=== PATIENT | female | born 1985 | race Caucasian/White ===

== ENCOUNTER → 2016-08-24 | Outpatient (CLI) | payer SELFPAY ==
--- NOTE | 2016-08-24 18:11 | DI ---
XR ELBOW COMPLETE MIN 3VW,08/24/2016 2:36 PM: Clinical History: Left elbow pain. Previous Exam: None at this facility. Findings: AP, lateral and oblique views of the left elbow are obtained, and demonstrate anatomic alignment with out fractures. There is no evidence of elbow joint effusion. Impression: Normal left elbow.
== END ==
LOC: MOB RAD 14:38
PROVIDERS: ATTEND Physician Assistant
DX: M25.522 Pain in left elbow (principal); W18.09XA Striking against other object with subsequent fall, initial encounter
CPT/HCPCS: 73080

== ENCOUNTER 2016-10-31 23:20 | Emergency (ER) | payer SELFPAY ==
[2016-10-31 23:34] LABS: BACTERIA,URINE MANY; SQUAMOUS EPITHELIAL CELL,UR FEW; WBC,URINE 60-80
[2016-10-31] MEDS ORDERED: SULFAMETHOXAZOLE/TRIMETHOPRIM 800/160 MG TABLET PO SCH (23:45)
[2016-10-31] MEDS ORDERED: SULFAMETHOXAZOLE/TRIMETHOPRIM 800/160 MG TABLET PO ONE (23:47)
[2016-10-31 23:49] VITALS: RESP 18; TEMP 97.6
--- NOTE | 2016-11-01 01:10 | PDOC ---
Female Problem HPI - General Chief Complaint: Genitourinary Complaint Stated Complaint: burning with urination Date Seen by Provider: 10/31/16 Time Seen by Provider: 23:30 Source: POSITIVE: Patient Exam Limitations: POSITIVE: No limitations Nurse's Notes Reviewed & Considered: Yes - History of Present Illness Initial Comments: The patient is a 31-year-old female. She presents ambulatory to the emergency room. She states that for approximately the past 24 hours she has had dysuria and urinary urgency. She took to ease oh tablets this evening. No fevers or chills. No flank or abdominal pain. She states she's had a bilateral tubal ligation. Previous history of UTIs. Body Location Affected: REPORTS: Other (Dysuria) Timing: REPORTS: Gradual, Getting Worse Duration: <24 hours Severity: Moderate Quality: REPORTS: Burning, Other (Dysuria) Context: DENIES: Frequent Bathing, Poor Hygiene, Frequent [place], Known STD Exposure, Unknown STD Exposure, Possible STD Exposure, Multiple Partners, Known , Recent Vaginal Delivery, Recent Delivery, Recent Miscarriage, Recent Trauma, Recent Surgery, Other Location of Pain: REPORTS: Burning (Dysuria). DENIES: Right, Left, Breast Pain , Abdominal Pain, Pelvic Pain, Pelvic Cramping, Pelvic Pressure, Sharp, Vulvar Pain, Vaginal Pain, Low Back Pain, Flank Pain, Shoulder Pain : REPORTS: Other (Tubal ligation) Urinary Symptoms: REPORTS: Frequent Urination, Burning w/ Urination, Urinary Urgency Discharge: DENIES: Vaginal Discharge, Vag Fluid Leak- , Breast Discharge, Other Similar Symptoms Previously: Yes Recent Care Received: REPORTS: Denies Any Prior Injuries Related to Current Complaint?: No - Patient Home Medications Home Medications: Home Medications Escitalopram Oxalate [Lexapro] 1 tab PO DAILY #30 tab 07/14/16 Phentermine HCl 37.5 mg PO DAILY #30 tab 10/22/16 Sulfamethoxazole/Trimethoprim [Bactrim Ds Tablet] 1 tab PO Q12H #18 tab - Patient Allergies Allergies/Adverse Reactions: Allergies Allergy/AdvReac Type Severity Reaction Status Date / Time No Known Allergies Allergy Verified 10/31/16 23:26 Past Medical History - heen HEENT History: Denies History Cardiovascular History: Denies History Respiratory History: Denies History Gastrointestinal History: Denies History Genitourinary History: Recurrent UTI Endocrine History: Denies History Musculoskeletal History: Denies History Neurological History: Denies History Blood Disorders: Denies History Psychiatric History: Depression, Anxiety Disorders History of Sexually Transmitted Diseases: No Cancer History: Denies History In Past Year Been Physically Harmed or Verbally Threatened: No History of MDRO: No History of Other Communicable Diseases: No Tobacco Use: Current Every Day Smoker Alcohol Use: None Substance Use Type: None Previous Surgical History: Yes Type / Date of Surgery: TONSILS AND ADNOIDS, C-SECTx3 Anesthesia Reactions: No Malignant Hyperthermia: No Significant Family History: No pertinent family hx Past Medical History Reviewed: Reviewed - No Changes ROS - Limitations ROS Limitations: No Limitations Constitution: REPORTS: Denies Symptoms Cardiovascular: REPORTS: Denies Cardiac Symptoms Respiratory: REPORTS: Denies Resp Symptoms Neurological: REPORTS: Denies Neuro Symptoms Gastrointestinal: REPORTS: Denies GI Symptoms Endocrine: REPORTS: Denies Symptoms Musculoskeletal: REPORTS: Denies MS Symptoms Genitourinary: REPORTS: Dysuria Eyes: REPORTS: Denies Symptoms ENT: REPORTS: Denies Symptoms Skin: REPORTS: Denies Skin Symptoms Lympathic: REPORTS: Denies Lympathic Symptoms Immunologic: POSITIVE: Denies Symptoms Psychiatric: POSITIVE: Denies Psych Symptoms Female Genitourinary Exam - General Appearance General Appearance: POSITIVE: Alert, Cooperative, No Acute Distress, No Evidence of Trauma - HEENT HEENT: POSITIVE: Head Inspection Nml, Eyes Inspection Nml, Ears Inspection Nml, Nose Inspection Nml, Oral/Dental Inspect. Nml, Pharynx Inspect. Nml, PERRL, EOMI - Neck Neck: POSITIVE: Normal Inspection, No Apparent Injury - Respiratory Respiratory: POSITIVE: No Respiratory Distress, Breath Sounds Normal, Chest Non- Tender - Cardiovascular Cardiovascular: POSITIVE: Regular Rate and Rhythm, Heart Sounds Normal, Equal Pulses, Strong Pulses Peripheral Pulses: Radial (R): 2+, Radial (L): 2+ - Abdomen Abdomen: POSITIVE: Soft, Normal Bowel Sounds, Non-Tender, No Distention, No Organomegaly - Back Back: POSITIVE: Normal Inspection. 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 Culture set - Patient's Progress Pain Medication Addressed: POSITIVE: Not Applicable School/Work Release Addressed: POSITIVE: Not Applicable Re-Examine Time: 00:15 Status: POSITIVE: Unchanged - Consult Counseled: POSITIVE: Patient, RE: Lab Results, RE: DX, RE: Need for F/U Patient Care Time - Estimated PCT Patient Care Time (In Minutes): 23 Vital Signs - Recent Vital Signs Vital Signs: Vital Signs (Last 8 hours) Temp Pulse Resp BP Pulse Ox 10/31/16 23:20 97.6 F 87 18 137/91 100 - VS Reviewed Vital Signs Reviewed: Yes Discharge Clinical Impression: Urinary tract infection Discharge Disposition: Discharged to Home Condition: Good Prescriptions / Orders: Sulfamethoxazole/Trimethoprim [Bactrim Ds Tablet] 1 tab PO Q12H #18 tab Patient Instructions Given at Discharge: Urinary Tract Infection in Women (ED) Additional Instructions: Bactrim DS, one every 12 hours for 10 days. Increase fluids. Azo every 8 hours as necessary for urinary discomfort. Follow-up with your primary care provider. Return here anytime if condition worsens. Follow Up With: WENDY MERAZ [Primary Care Provider] - (Instructions as above. Return here anytime if condition worsens. Follow-up with your primary care provider.)
== END 2016-10-31 23:57 | disposition home or self-care (01) ==
LOC: ER 23:20
DX: N39.0 Urinary tract infection, site not specified (principal); Z87.440 Personal history of urinary (tract) infections
CPT/HCPCS: 81015; 87088; 99282

== ENCOUNTER 2016-11-15 21:35 | Emergency (ER) | payer OTHER ==
[2016-11-15] MEDS ORDERED: Lidocaine 1% 10 MG/ML - 20 ML VIAL SUBCUT ONE (21:46)
[2016-11-15 22:12] VITALS: RESP 20; TEMP 97.2
[2016-11-15] MEDS ORDERED: HYDROcodone-APAP 5 MG -325 MG TABLET PO SCH (23:15)
[2016-11-15] MEDS ORDERED: CEPHALEXIN 500 MG CAPSULE PO SCH (23:15)
--- NOTE | 2016-11-16 00:47 | PDOC ---
Hand / Wrist Injury HPI - General Chief Complaint: Laceration / Wound Stated Complaint: laceration to the 3rd digit of right hand Date Seen by Provider: 11/15/16 Time Seen by Provider: 22:15 Source: POSITIVE: Patient Exam Limitations: POSITIVE: No limitations Nurse's Notes Reviewed & Considered: Yes - History of Present Illness Initial Comments: The patient is a 31-year-old female who presents to the emergency department with a laceration to her right middle finger. She states that she was at work wiping out a cabinet when a glass shard went through the pad of her right middle finger into the ring finger. She states that she had to pull the piece of glass out of her finger. She denies any other associated injuries or complaints. She had a tetanus shot approximately 4 months ago after cutting her hand on a can of chili. Have you received a tetanus shot in the past 10 years?: Yes - Patient Home Medications Home Medications: Home Medications Escitalopram Oxalate [Lexapro] 1 tab PO DAILY #30 tab 07/14/16 Phentermine HCl 37.5 mg PO DAILY #30 tab 10/22/16 Cephalexin [Keflex] 500 mg PO Q8H #15 cap 11/15/16 - Patient Allergies Allergies/Adverse Reactions: Allergies Allergy/AdvReac Type Severity Reaction Status Date / Time No Known Allergies Allergy Verified 10/31/16 23:26 Past Medical History - heen HEENT History: Denies History Cardiovascular History: Denies History Respiratory History: Denies History Gastrointestinal History: Denies History Genitourinary History: Recurrent UTI Endocrine History: Denies History Musculoskeletal History: Denies History Neurological History: Denies History Blood Disorders: Denies History Psychiatric History: Depression, Anxiety Disorders History of Sexually Transmitted Diseases: No Obstetrical History: Delivery Additional Obstetrical History: x3 C-sections Cancer History: Denies History In Past Year Been Physically Harmed or Verbally Threatened: No History of MDRO: No History of Other Communicable Diseases: No Tobacco Use: Current Every Day Smoker Alcohol Use: None Substance Use Type: None Previous Surgical History: Yes Type / Date of Surgery: TONSILS AND ADNOIDS, C-SECTx3 Anesthesia Reactions: No Malignant Hyperthermia: No Significant Family History: No pertinent family hx Past Medical History Reviewed: Reviewed - No Changes ROS - Limitations ROS Limitations: No Limitations (Review of systems otherwise noncontributory) Hand / Wrist Injury Exam - General Appearance General Appearance: POSITIVE: Alert, Cooperative, No Acute Distress - Extremities Upper Extremity: POSITIVE: Other (examination of the right hand reveals a puncture laceration from a glass shard that extends through the distal aspect of her right middle finger on the pad of the finger, there is some minimal bleeding from both wounds, she also has a small puncture to the pad of her right fourth fingertip) Neurovascular / Tendon: POSITIVE: Sensation Normal, Motor Normal, No Vascular Compromise Procedure - Laceration/Wound Repair Site of Lac/Wound:: Right middle finger Wound Length (cm): 1.5 Wound's Depth, Shape: Into subcutaneous tissue, Linear Distal CMS: Yes Skin Prep: Betadine Prep Local Anesthesia Used - Indicate Amt Used in Comment: Lidocaine 1%: Yes ( digital block) Wound Explored: Clean Wound Repaired With: Sutures single layer Suture Size/Type: 4:0, Ethilon Number of Sutures: 2 Procedure Note:: She did have a puncture laceration which went through the pad of her right middle finger, digital block was placed in the wound was cleansed, one stitch was placed in the entrance and one stitch in the exit wound on the finger to loosely approximate both wounds, Xeroform tube gauze dressing was applied. - Additional Procedures Additional Procedures: Other Procedure Note:: In addition to the wound on the middle finger, on x-ray it appeared that she had a shard of glass located in the distal aspect of the ring finger. Digital block was applied and the wound was explored, there was a piece of glass however this could not be removed initially. An 11 blade scalpel was used to enlarge the wound slightly and then forcep was used to remove the glass shard. Repeat x-ray revealed no evidence of continued foreign body. Dressing was applied and one stitch was placed in the wound to reapproximate. Hand / Wrist Injury Progress - Results Reviewed by me Xrays/CTs/US Reviewed by me: Yes Radiology Findings: X-ray of the right hand reveals no evidence of foreign body in the middle finger, there is however a foreign body in the distal tip of the ring finger - Patient's Progress MDM / ED Course: Wound care instructions were discussed. It appears at least by x-ray that the glass shard was removed from the distal aspect of the ring finger. She was placed on Keflex 500 mg 3 times a day for 5 days. In addition she is advised to take ibuprofen as needed for pain and was given number for [place] as needed for pain. She will return to the emergency room if increased pain or swelling, fever, other sign of infection. She'll have sutures removed from all wounds in approximately 10 days. - Consult Counseled: POSITIVE: Patient, Family, RE: Radiology Results, RE: DX, RE: Need for F/U Patient Care Time - Estimated PCT Patient Care Time (In Minutes): 40 Vital Signs - Recent Vital Signs Vital Signs: Vital Signs (Last 8 hours) Temp Pulse Resp BP Pulse Ox 11/15/16 22:09 97.2 F 93 20 137/98 93 - VS Reviewed Vital Signs Reviewed: Yes Discharge Clinical Impression: Laceration of finger, Foreign body (FB) in soft tissue Discharge Disposition: Discharged to Home Condition: Good Prescriptions / Orders: Cephalexin [Keflex] 500 mg PO Q8H #15 cap Patient Instructions Given at Discharge: Laceration (ED), Soft Tissue Foreign Body (ED) Additional Instructions: There was a small shard of glass located at the tip of your right ring finger which was removed. The other lacerations/puncture to the middle finger was repaired with a stitch. Keep all the wounds dry for the first 24 hours. You can take ibuprofen 600 mg every 6 hours as needed for pain. In addition you were given [place] 5/325 which he can take one every 6 hours as needed for severe pain. In addition you have been started on Keflex 500 mg 3 times a day for 5 days which is an antibiotic. Return to the emergency room if increased pain or swelling, drainage from the wound, fever or other sign of infection. Sutures should be removed in 10 days. Follow Up With: WENDY MERAZ [Primary Care Provider] -
--- NOTE | 2016-11-16 13:00 | DI ---
XR HAND MIN 3VW,11/15/2016 9:46 PM: Clinical History: Puncture wound from glass. Previous Exam: None at this facility. Findings: Multiple views of the right hand are obtained, and demonstrate a calcified density near the distal po rtion of the right fourth phalanx. Surrounding soft tissues are unremarkable. Impression: Avulsion fracture right fourth digit distally within the soft tissues.
--- NOTE | 2016-11-16 13:00 | DI ---
XR FINGERS MIN 2VW,11/15/2016 10:47 PM: Clinical History: Post reduction Previous Exam: One hour prior. Findings: Multiple views of the right fourth digit are obtained, and demonstrate interval removal of the hyperd ense area seen on the prior exam. Impression: No foreign body.
== END 2016-11-15 23:20 | disposition home or self-care (01) ==
LOC: ER 21:35
DX: S61.222A Laceration with foreign body of right middle finger without damage to nail, initial encounter (principal); W25.XXXA Contact with sharp glass, initial encounter; W45.8XXA Other foreign body or object entering through skin, initial encounter; Y92.511 Restaurant or cafe as the place of occurrence of the external cause; Y99.0 Civilian activity done for income or pay
CPT/HCPCS: 10120; 12001; 73130; 73140; 99283; J2001

== ENCOUNTER 2016-11-16 14:55 | Emergency (ER) | payer OTHER ==
[2016-11-16 15:45] VITALS: RESP 12; TEMP 98.2
--- NOTE | 2016-11-16 22:11 | PDOC ---
Hand / Wrist Injury HPI - General Chief Complaint: Upper Extremity Problem/Injury Stated Complaint: pain right middle finger Date Seen by Provider: 11/16/16 Time Seen by Provider: 17:45 Source: POSITIVE: Patient Exam Limitations: POSITIVE: No limitations Nurse's Notes Reviewed & Considered: Yes - History of Present Illness Initial Comments: The patient is a 31-year-old female. Last night she broke a drinking glass and sustained lacerations to the tips of her right ring and middle fingers. She was seen in the emergency room last night and a shard of glass was removed from the tip of her ring finger. Patient states that she was started on Keflex at that time and was given 4 Lortab tablets for pain. She presents to the emergency room today requesting a work excuse and stating that she is still having discomfort at the site of her wounds. No sensory or motor symptoms. Have you received a tetanus shot in the past 10 years?: Yes Body Location Affected: REPORTS: Upper Extremity (R) Timing: REPORTS: Abrupt Duration: <24 hours Severity: Mild Location at Time of Onset: REPORTS: Work Context: REPORTS: Laceration Location of Injury: REPORTS: Right, 3rd Finger, 4th Finger Quality: REPORTS: "Pain" Modifying Factors: REPORTS: Other (Exacerbated by direct palpation) Associated Symptoms: DENIES: Arm (R), Arm (L), Tingling Distally, Numbness Distally, Loss of Feeling, Loss of Power, Other Any Prior Injuries Related to Current Complaint?: Yes (as above) - Patient Home Medications Home Medications: Home Medications Escitalopram Oxalate [Lexapro] 1 tab PO DAILY #30 tab 07/14/16 Phentermine HCl 37.5 mg PO DAILY #30 tab 10/22/16 Cephalexin [Keflex] 500 mg PO Q8H #15 cap 11/15/16 HYDROcodone/APAP 10/325 Tab [[place] 10/325 Tab] 1 tab PO Q6H PRN #12 tab - Patient Allergies Allergies/Adverse Reactions: Allergies Allergy/AdvReac Type Severity Reaction Status Date / Time No Known Allergies Allergy Verified 11/16/16 15:06 Past Medical History - nona HEENT History: Denies History Cardiovascular History: Denies History Respiratory History: Denies History Gastrointestinal History: Denies History Genitourinary History: Recurrent UTI Endocrine History: Denies History Musculoskeletal History: Denies History Prosthesis or Implant: No Neurological History: Denies History Blood Disorders: Denies History Psychiatric History: Depression, Anxiety Disorders History of Sexually Transmitted Diseases: No LMP: 10/22/16 Obstetrical History: Delivery Additional Obstetrical History: times 3 Cancer History: Denies History In Past Year Been Physically Harmed or Verbally Threatened: No History of MDRO: No History of Other Communicable Diseases: No Tobacco Use: Current Every Day Smoker Alcohol Use: None Substance Use Type: None Previous Surgical History: Yes Type / Date of Surgery: TONSILS AND ADNOIDS, C-SECTx3 Anesthesia Reactions: No Malignant Hyperthermia: No Significant Family History: No pertinent family hx Past Medical History Reviewed: Reviewed - No Changes ROS - Limitations ROS Limitations: No Limitations Constitution: REPORTS: Denies Symptoms Cardiovascular: REPORTS: Denies Cardiac Symptoms Respiratory: REPORTS: Denies Resp Symptoms Neurological: REPORTS: Denies Neuro Symptoms Gastrointestinal: REPORTS: Denies GI Symptoms Endocrine: REPORTS: Denies Symptoms Musculoskeletal: REPORTS: Recent Injury (Some pain to the tips of her right third and fourth fingers as above; see diagram) Genitourinary: REPORTS: Denies Symptoms Eyes: REPORTS: Denies Symptoms ENT: REPORTS: Denies Symptoms Skin: REPORTS: Other (Lacerations as above) Lympathic: REPORTS: Denies Lympathic Symptoms Immunologic: POSITIVE: Denies Symptoms Psychiatric: POSITIVE: Denies Psych Symptoms Hand / Wrist Injury Exam - General Appearance General Appearance: POSITIVE: Alert, Cooperative, No Acute Distress. NEGATIVE: No Evidence of Trauma - Extremities Upper Extremity: POSITIVE: No Evidence of FB, Normal ROM, Soft Tissue Tenderness , Uninjured Above Wrist, See Diagram. NEGATIVE: Bony Tenderness, Swelling, Ecchymosis, Deformity, Complete Nail Injury, Partial Avulsion, Limited ROM, Limited ROM d/t Pain, Ltd. ROM d/t Funct. Def., Snuff Box Position Tender, Axial Thumb Load Pain Neurovascular / Tendon: POSITIVE: Sensation Normal, Motor Normal, No Vascular Compromise, Tendon Function Normal Skin: POSITIVE: Warm, Dry, See Diagram - Respiratory / CVS Peripheral Pulses: Radial (R): 2+, Radial (L): 2+ Images - Hands Hand: 1 - Sutured laceration 2 - Sutured laceration Hand / Wrist Injury Progress - Patient's Progress Pain Medication Addressed: POSITIVE: Yes (hydrocodone/APAP, 10/325 one every 6 hours as necessary; 12 given) School/Work Release Addressed: POSITIVE: Yes Re-Examine Time: 18:00 Status: POSITIVE: Unchanged - Consult Counseled: POSITIVE: Patient Patient Care Time - Estimated PCT Patient Care Time (In Minutes): 15 Vital Signs - Recent Vital Signs Vital Signs: Vital Signs (Last 8 hours) Temp Pulse Resp BP Pulse Ox 11/16/16 15:04 98.2 F 83 12 124/70 95 - VS Reviewed Vital Signs Reviewed: Yes Discharge Clinical Impression: Laceration of finger Discharge Disposition: Discharged to Home Condition: Stable Prescriptions / Orders: HYDROcodone/APAP 10/325 Tab [[place] 10/325 Tab] 1 tab PO Q6H PRN #12 tab PRN Reason: Pain Patient Instructions Given at Discharge: Laceration (ED) Additional Instructions: Keep sutures dry. Work excuse for 72 hours. Hydrocodone/APAP, one every 6 hours as necessary for pain. Return for suture removal in about 9 days. Return anytime at first sign of infection, or if condition worsens in any way. Follow Up With: WENDY MERAZ [Primary Care Provider] - (Return for suture removal in about 9 days. Instructions as above. Return as necessary.)
== END 2016-11-16 18:07 | disposition home or self-care (01) ==
LOC: ER 14:55
DX: S61.212A Laceration without foreign body of right middle finger without damage to nail, initial encounter (principal); S61.214A Laceration without foreign body of right ring finger without damage to nail, initial encounter; W25.XXXA Contact with sharp glass, initial encounter; Y99.0 Civilian activity done for income or pay
CPT/HCPCS: 99282

== ENCOUNTER 2016-12-21 22:39 | Emergency (ER) | payer SELFPAY ==
[2016-12-21 22:55] VITALS: TEMP 98.6
[2016-12-21] MEDS ORDERED: NORMAL SALINE 10 ML SYRINGE FLUSH IVP PRN (22:59)
[2016-12-21] MEDS ORDERED: Sodium Chloride 0.9% 1,000 ML PRIMARY IV ONE (22:59)
[2016-12-21] MEDS ORDERED: KETOROLAC 30 MG/1 ML VIAL IVP ONE (22:59)
[2016-12-21] MEDS ORDERED: TAMSULOSIN 0.4 MG CAPSULE PO ONE (23:01)
[2016-12-21 23:09] LABS: BASOPHILS # (AUTO) 0.11 10*3/UL; EOSINOPHILS # (AUTO) 0.16 10*3/UL; EOSINOPHILS % (AUTO) 1.5 % (0-8); HEMATOCRIT 43.3 % (37.0-47.0); HEMOGLOBIN 14.8 g/dL (12.0-16.0); LYMPHOCYTES # (AUTO) 3.82 10*3/uL; MEAN CORPUSCULAR HEMOGLOBIN 32.2 PG (27-31); MEAN CORPUSCULAR HGB CONC 34.2 g/dL (33-37); MEAN CORPUSCULAR VOLUME 94.1 FL (81-99); MEAN PLATELET VOLUME 10.9 FL (7.4-12.2); MONOCYTES # (AUTO) 0.79 10*3/UL (0.3-0.8); MONOCYTES % (AUTO) 7.5 % (5-15); NEUTROPHILS # (AUTO) 5.62 10*3/UL; NEUTROPHILS % (AUTO) 53.5 % (50-80)
[2016-12-21 23:10] LABS: PLATELET MORPHOLOGY COMMENT NORMAL MORPHOLOGY (NORM); RBC MORPHOLOGY COMMENT NORMAL MORPHOLOGY (NORM); WBC MORPHOLOGY COMMENT NORMAL MORPHOLOGY (NORM)
[2016-12-21] MEDS: HYDROmorphone 2 MG/1 ML IVP ONE ×2 (23:15→23:49)
[2016-12-21 23:16] LABS: BILIRUBIN,URINE NEGATIVE (NEG); CLARITY,URINE CLEAR (CLEAR); COLOR,URINE YELLOW; GLUCOSE, URINE (UA) NEGATIVE (NEG); NITRATE,URINE NEGATIVE (NEG); OCCULT BLOOD,URINE NEGATIVE (NEG); PROTEIN,URINE NEGATIVE (NEG); URINE SAMPLE TYPE CLEAN CATCH URINE; UROBILINOGEN,URINE 0.2 EU/dL (0.2)
[2016-12-21 23:18] LABS: BLOOD UREA NITROGEN 16 mg/dL (7-22); BUN/CREATININE RATIO 17.77 (6-20); CALCIUM 8.9 mg/dL (8.7-10.7); EST GLOMERULAR FILTRATION > 60 (>60 ml/min/1.73m(2)); SERUM ALBUMIN 4.4 g/dL (3.5-4.8)
--- NOTE | 2016-12-22 00:16 | DI ---
HISTORY: Right-sided abdominal pain with urination. TECHNIQUE: Contiguous transaxial computed tomographic images were obtained of the abdomen and pelvis per routine protocol with IV contrast. Coronal and sagittal reformat images were performed. COMPARISON: Report from 12/09/14. FINDINGS: LUNG BASES: Clear. INFERIOR MEDIASTINUM: Unremarkable. LIVER: Normal in size and attenuation with no focal abnormalities. GALLBLADDER AND BILE DUCTS: Gallbladder is normal in appearance with no gallbladder wall thickening or pericholecystic fluid. No biliary dilatation. SPLEEN: Normal in size and attenuation with no focal abnormalities. PANCREAS: Normal in size and attenuation with no focal abnormalities. ADRENALS: Normal in size and attenuation with no focal abnormalities. : There is an 8mm hypoattenuating lesion within the inferior pole of the left kidney which is too s mall to characterize and statistically represent a cyst. No evidence of urinary obstruction or obstr ucting urinary calculi. Ureters are normal throughout their course. Urinary bladder is within bhavna l limits. GI: No evidence of bowel obstruction or focal inflammation. No focal bowel wall thickening. Normal appendix in the right lower quadrant. PELVIS: Within normal limits with no mass identified. VESSELS: Aorta is normal in size with no evidence of aneurysm or rupture. OTHER: No focal mesenteric inflammation. No free air or free fluid. No abnormal lymphadenopathy. BONES: No acute bony abnormality. No suspicious osteolytic or osteoblastic lesion. There is degener ative disc disease at the L5/S1 level. SOFT TISSUES: Unremarkable. IMPRESSION: 1. No acute abdominal or pelvic process identified.
[2016-12-22] MEDS: HYDROmorphone 2 MG/1 ML IVP ONE (00:45)
[2016-12-22] MEDS ORDERED: HYDROcodone-APAP 10 MG-325 MG TABLET PO SCH (00:45)
[2016-12-22 01:03] VITALS: RESP 18
--- NOTE | 2016-12-22 03:37 | PDOC ---
Abdomen/Flank HPI - General Chief Complaint: Genitourinary Complaint Stated Complaint: RIGHT FLANK PAIN THAT RADIATES TO ABD. Date Seen by Provider: 12/21/16 Time Seen by Provider: 22:50 Source: POSITIVE: Patient Exam Limitations: POSITIVE: No limitations Nurse's Notes Reviewed & Considered: Yes - History of Present Illness Initial Comments: The patient is a 31-year-old female. She states that 2 days ago she developed some "cramping pain "right paraumbilical area and right CVA area. She states that this pain got worse this morning and then went away and then recurred again this evening. Patient also states that her abdominal discomfort is exacerbated by urination. Patient states she believes she had a "kidney stone "10 years ago. She's had a tubal ligation and section. She has just finished a course of antibiotic for sinusitis. She states she has a history of anxiety and depression. She smokes a half a pack of cigarettes per day. Body Location Affected: REPORTS: Abdomen Timing: REPORTS: Intermittent Duration: >24 hours (2 days) Severity: Moderate Quality: REPORTS: Cramping, "Pain" Abdominal Pain Onset Location: REPORTS: RLQ, Periumbilical (Right paraumbilical area) Abdominal Pain Radiation: REPORTS: Flank Context: REPORTS: None Modifying Factors: improves with: Nothing Associated Symptoms: DENIES: Denies symptoms, Back pain, Bloody Emesis, Chest pain, Coffee Grounds Emesis, Chills, Diaphoresis, Fever, Fatigue, Headache, Heartburn, Loss of Appetite, Nausea, Rash, Shortness of breath, Swelling/mass in abdomen, Syncope, Testicular Pain, Vomiting, Weakness, Grossly Bloody Diarrhea, Constipation, Diarrhea, Dysuria, Incontinent Stool, Incontinent Urine , Mucous Diarrhea, Difficulty Walking, Dizziness, Light Headedness, Numbness, Other Similar Symptoms Previously: No Recent Care Received: REPORTS: Denies Any Prior Injuries Related to Current Complaint?: No - Patient Home Medications Home Medications: Home Medications Escitalopram Oxalate [Lexapro] 1 tab PO DAILY #30 tab 07/14/16 Phentermine HCl 37.5 mg PO DAILY #30 tab 11/20/16 Cefdinir 300 mg PO Q12H #20 cap 12/16/16 Hydrocodone/Acetaminophen [Hydrocodon-Acetaminophen 5-300] 1 - 2 tab PO BID PRN #20 tab 12/16/16 - Patient Allergies Allergies/Adverse Reactions: Allergies Allergy/AdvReac Type Severity Reaction Status Date / Time No Known Allergies Allergy Verified 12/21/16 22:48 Past Medical History - heen HEENT History: Denies History Cardiovascular History: Denies History Respiratory History: Denies History Gastrointestinal History: Denies History Genitourinary History: Recurrent UTI, Kidney Stones Endocrine History: Denies History Musculoskeletal History: Denies History Prosthesis or Implant: No Neurological History: Denies History Blood Disorders: Denies History Psychiatric History: Depression, Anxiety Disorders History of Sexually Transmitted Diseases: No Female Reproductive History: Denies History Obstetrical History: Delivery Cancer History: Denies History In Past Year Been Physically Harmed or Verbally Threatened: No History of MDRO: No History of Other Communicable Diseases: No Tobacco Use: Current Every Day Smoker Alcohol Use: None Substance Use Type: None Previous Surgical History: Yes Type / Date of Surgery: TONSILS AND ADNOIDS, C-SECTx3 Anesthesia Reactions: No Malignant Hyperthermia: No Significant Family History: No pertinent family hx Past Medical History Reviewed: Reviewed - No Changes ROS - Limitations ROS Limitations: No Limitations Constitution: REPORTS: Denies Symptoms Cardiovascular: REPORTS: Denies Cardiac Symptoms Respiratory: REPORTS: Denies Resp Symptoms Neurological: REPORTS: Denies Neuro Symptoms Gastrointestinal: REPORTS: Abdominal Pain Endocrine: REPORTS: Denies Symptoms Musculoskeletal: REPORTS: Denies MS Symptoms Genitourinary: REPORTS: Flank Pain (Right) Eyes: REPORTS: Denies Symptoms ENT: REPORTS: Denies Symptoms Skin: REPORTS: Denies Skin Symptoms Lympathic: REPORTS: Denies Lympathic Symptoms Immunologic: POSITIVE: Denies Symptoms Psychiatric: POSITIVE: Denies Psych Symptoms Abdominal/Flank Pain PE - General Appearance General Appearance: POSITIVE: Alert, Cooperative, No Evidence of Trauma, Moderate Distress - HEENT HEENT: POSITIVE: Head Inspection Nml, Eyes Inspection Nml, Ears Inspection Nml, Nose Inspection Nml, Oral/Dental Inspect. Nml, Pharynx Inspect. Nml, PERRL, EOMI - Neck Neck: POSITIVE: Normal Inspection, No Apparent Injury - Respiratory Respiratory: POSITIVE: No Respiratory Distress, Breath Sounds Normal, Chest Non- Tender - Cardiovascular Cardiovascular: POSITIVE: Regular Rate and Rhythm, Heart Sounds Normal, Equal Pulses, Strong Pulses Peripheral Pulses: Radial (R): 2+, Radial (L): 2+ - Chest Chest: POSITIVE: Non Tender - Abdomen Abdomen: Soft: (LUQ), (LLQ), Normal Bowel Sounds: (All Quadrants), Denies Tenderness: (LLQ), (LUQ), No Splenomegaly: (All Quadrants), No Hepatomegaly: ( All Quadrants), No Guarding: (All Quadrants), No Rebound: (All Quadrants), No Palpable Pulse: (All Quadrants), No Palpabale Mass: (All Quadrants), No Distention: (All Quadrants), No Rigidity: (All Quadrants), Tenderness Noted: ( RLQ) (right paraumbilical area) - Back Back: POSITIVE: Normal Inspection - Skin Skin: POSITIVE: Intact, Normal For Race, Warm, Dry, No Rash - Extremities Extremity: Non-Tender: (All Extremities), Normal ROM: (All Extremities), Normal Inspection: (All Extremities) - Neurological Neurological: POSITIVE: Oriented X3, veneer stapler Normal As Tested, Motor Normal, Sensation Normal, 5, 6 - Psychological Psychiatric: POSITIVE: Affect Appropriate, Mood Appropriate Images - Complete Complete: 1 - Area of described discomfort/pain Abdomen Progress - Results Reviewed by me Xrays/CTs/US Reviewed by me: Yes Discussed with Radiologist: Yes Radiology Findings: CT scan of abdomen and pelvis read as normal by radiologist Lab Results Reviewed: Yes (all labs normal) Lab Results:: Laboratory Results 12/21/16 12/22/16 Range/Units 22:55 00:00 WBC 10.52 (4.8-10.8) 10^3/uL RBC 4.60 (4.20-5.40) 10^6/uL Hgb 14.8 (12.0-16.0) g/dL Hct 43.3 (37.0-47.0) % MCV 94.1 (81-99) FL MCH 32.2 H (27-31) PG MCHC 34.2 (33-37) g/dL RDW Std Deviation 41.5 (39-50) fL RDW Coeff of Lui 12.3 (11.5-14.5) % Plt Count 269 (140-350) 10*3/uL MPV 10.9 (7.4-12.2) FL Immature Gran % (Auto) 0.2 (0-5) % Neut % (Auto) 53.5 (50-80) % Lymph % (Auto) 36.3 (10-50) % Parker % (Auto) 7.5 (5-15) % Eos % (Auto) 1.5 (0-8) % Baso % (Auto) 1.0 (0-1) % Immature Gran # (Auto) 0.02 10*3/UL Neut # (Auto) 5.62 10*3/UL Lymph # (Auto) 3.82 10*3/uL Parker # (Auto) 0.79 (0.3-0.8) 10*3/UL Eos # (Auto) 0.16 10*3/UL Baso # (Auto) 0.11 10*3/UL WBC Morphology Comment Normal morphology (NORM) Plt Morphology Comment Normal morphology (NORM) RBC Morph Comment Normal morphology (NORM) Sodium 141 (135-145) meq/L Potassium 4.1 (3.8-5.2) meq/L Chloride 108 (98-112) meq/L Carbon Dioxide 20 L (23-33) meq/L Anion Gap 13 (5-20) BUN 16 (7-22) mg/dL Creatinine 0.9 (0.50-1.20) mg/dL Estimated GFR > 60 (>60 ml/min/1.73m(2)) BUN/Creatinine Ratio 17.77 (6-20) Glucose 79 (78-110) mg/dL Calculated Osmolality 291.0 (267-292) mOsm/kg Calcium 8.9 (8.7-10.7) mg/dL Total Bilirubin 0.5 (0.3-1.2) mg/dL AST 27 (8-39) IU/L ALT 31 (9-52) IU/L Alkaline Phosphatase 52 (38-126) IU/L Total Protein 7.7 (6.1-8.0) g/dL Albumin 4.4 (3.5-4.8) g/dL Globulin 3.3 (2.50-4.10) g/dL Albumin/Globulin Ratio 1.30 (1.3-2.0) mg/g Serum HCG, Qual Negative Ur Collection Type Clean catch urine Urine Color Yellow Urine Clarity Clear (CLEAR) Urine pH 5.0 (5.0-8.5) Ur Specific [place] 1.025 (1.005-1.030) Urine Protein Negative (NEG) mg/dl Urine Glucose (UA) Negative (NEG) mg/dL Urine Ketones Trace (NEG) Urine Occult Blood Negative (NEG) Urine Nitrate Negative (NEG) Urine Bilirubin Negative (NEG) Urine Urobilinogen 0.2 (0.2) EU/dL Ur Leukocyte Esterase Negative (NEG) Ur Culture Indicated? Culture not set - Patient's Progress Pain Medication Addressed: POSITIVE: Yes School/Work Release Addressed: POSITIVE: Not Applicable Re-examine Time: 00:30 Re-Examine Comment: Discomfort less, but still present, on discharge Status: POSITIVE: Improved, Re-Examined - Consult Counseled: POSITIVE: Patient, Family, RE: Lab Results, RE: Radiology Results, RE : DX, RE: Need for F/U Patient Care Time - Estimated PCT Patient Care Time (In Minutes): 50 Vital Signs - Recent Vital Signs Vital Signs: Vital Signs (Last 8 hours) Temp Pulse Pulse Resp BP BP Pulse Ox 12/22/16 01:15 87 18 129/89 94 12/22/16 01:03 18 95 12/21/16 22:47 98.6 F 87 20 137/83 94 - VS Reviewed Vital Signs Reviewed: Yes Discharge Clinical Impression: Abdominal pain of unknown cause Discharge Disposition: Discharged to Home Condition: Good Patient Instructions Given at Discharge: Acute Abdominal Pain (ED) Additional Instructions: I'm not completely sure what the source of your abdominal pain is. Your blood and urine tests, including test, are negative. CT scans of the abdomen and pelvis with IV contrast is read by radiologist as normal. Clear liquid diet for 24 hours. Hydrocodone/APAP, one every 4-6 hours as necessary for pain. Please follow-up tomorrow with your primary care provider, as is already arranged. Return here anytime if condition worsens in any way whatsoever. Follow Up With: WENDY MERAZ [Primary Care Provider] - (Instructions as above. Follow-up with your primary care provider. Return here as necessary.)
== END 2016-12-22 01:15 | disposition home or self-care (01) ==
LOC: ER 22:39
DX: R10.31 Right lower quadrant pain (principal); R30.0 Dysuria; R10.33 Periumbilical pain
CPT/HCPCS: 74177; 80053; 81003; 84703; 85025; 96361; 96374; 96375; 96376; 99283 ×2; J1885; J1170; J7030

== ENCOUNTER → 2016-12-23 | Outpatient (CLI) | payer SELFPAY | LOC: LAB 10:28 | PROVIDERS: ATTEND Family Medicine | DX: K52.9 Noninfective gastroenteritis and colitis, unspecified (principal) | CPT/HCPCS: 87046; 87177; 87209; 87493 ==

== ENCOUNTER 2017-01-09 13:40 | Emergency (ER) | payer SELFPAY ==
[2017-01-09 13:54] VITALS: RESP 16; TEMP 96.2
[2017-01-09 14:02] LABS: BACTERIA,URINE FEW; CLARITY,URINE SLIGHTLY CLOUDY (CLEAR); COLOR,URINE ORANGE; SQUAMOUS EPITHELIAL CELL,UR FEW; URINE SAMPLE TYPE CLEAN CATCH URINE; WBC,URINE 25-30
--- NOTE | 2017-01-09 15:15 | PDOC ---
Female Problem HPI - General Chief Complaint: Genitourinary Complaint Stated Complaint: bladder pain Date Seen by Provider: 01/09/17 Time Seen by Provider: 13:40 Source: POSITIVE: Patient Exam Limitations: POSITIVE: No limitations Nurse's Notes Reviewed & Considered: Yes - History of Present Illness Initial Comments: The patient is a 31-year-old female who presents to the emergency department with possible urinary tract infection. She states that she has a history of frequent urinary tract infections. She states that generally she is able to treat these at home by increasing her fluid intake and taking cranberry juice. She states that she had onset of dysuria, increased frequency and urgency yesterday. She did try increasing her fluid intake and using cranberry juice however her symptoms worsened this morning. She did take a dose of azo this morning with some mild improvement in symptoms. She does continue however to have lower abdominal pain and spasm as well as some pain in her right flank area. She has had some nausea without vomiting. She denies fevers or chills. - Patient Home Medications Home Medications: Home Medications Escitalopram Oxalate [Lexapro] 1 tab PO DAILY #30 tab 07/14/16 Hydrocodone/Acetaminophen [Hydrocodon-Acetaminophen 5-300] 1 - 2 tab PO BID PRN #20 tab 01/06/17 Ciprofloxacin HCl [Cipro HCl] 500 mg PO Q12H #10 tab 01/09/17 Hydrocodone/Acetaminophen [[place] 7.5-325 Tablet] 1 each PO Q6H PRN #10 tablet Phenazopyridine HCl [Azo-Tabs] 95 mg PO PRN 01/09/17 Phenazopyridine HCl [Pyridium] 200 mg PO TID PRN #6 tablet 01/09/17 - Patient Allergies Allergies/Adverse Reactions: Allergies Allergy/AdvReac Type Severity Reaction Status Date / Time No Known Allergies Allergy Verified 01/09/17 13:46 Past Medical History - heen HEENT History: Denies History Cardiovascular History: Denies History Respiratory History: Denies History Gastrointestinal History: Denies History Genitourinary History: Recurrent UTI, Kidney Stones Endocrine History: Denies History Musculoskeletal History: Denies History Prosthesis or Implant: No Neurological History: Denies History Blood Disorders: Denies History Psychiatric History: Depression, Anxiety Disorders History of Sexually Transmitted Diseases: No LMP: 12/22/16 Obstetrical History: Delivery Cancer History: Denies History In Past Year Been Physically Harmed or Verbally Threatened: No History of MDRO: No History of Other Communicable Diseases: No Tobacco Use: Current Every Day Smoker Alcohol Use: None Substance Use Type: None Previous Surgical History: Yes Type / Date of Surgery: TONSILS AND ADNOIDS, C-SECTx3 Anesthesia Reactions: No Malignant Hyperthermia: No Significant Family History: No pertinent family hx Past Medical History Reviewed: Reviewed - No Changes ROS - Limitations ROS Limitations: No Limitations Constitution: DENIES: Chills, Fever Cardiovascular: REPORTS: Denies Cardiac Symptoms Respiratory: REPORTS: Denies Resp Symptoms Neurological: REPORTS: Denies Neuro Symptoms Gastrointestinal: REPORTS: Abdominal Pain (Lower abdominal pain and cramping), Nausea, Diarrhea. DENIES: Vomitting Genitourinary: REPORTS: Dysuria, Flank Pain (Right-sided flank pain), Other ( Frequency and urgency) Eyes: REPORTS: Denies Symptoms ENT: REPORTS: Denies Symptoms Skin: DENIES: Rash Female Genitourinary Exam - General Appearance General Appearance: POSITIVE: Alert, Cooperative, No Acute Distress - HEENT HEENT: POSITIVE: Head Inspection Nml. NEGATIVE: Dry Mucous Membranes - Neck Neck: POSITIVE: Normal Inspection - Respiratory Respiratory: POSITIVE: No Respiratory Distress, Breath Sounds Normal - Cardiovascular Cardiovascular: POSITIVE: Regular Rate and Rhythm, Heart Sounds Normal - Abdomen Abdomen: POSITIVE: Soft, Normal Bowel Sounds, Other (Some mild suprapubic tenderness without guarding or rebound tenderness) - Back Back: POSITIVE: CVA Tenderness (R) (Very mild). NEGATIVE: CVA Tenderness (L) - Skin Skin: POSITIVE: Intact, No Rash - Extremities Extremity: Normal ROM: (All Extremities), Normal Inspection: (All Extremities) Female Genitourinary Progress - Results Reviewed by me Lab Results Reviewed: Yes Lab Results:: Laboratory Results 01/09/17 Range/Units 13:46 Ur Collection Type Clean catch urine Urine Color [place] Urine Clarity Slightly cloudy (CLEAR) Urine RBC 5-10 (NONE) /hpf Urine WBC 25-30 (NONE) Ur Squamous Epith Cells Few (NONE) Ur Renal Epithelial Cell None (NONE) Urine Crystals None Urine Bacteria Few (NONE) Urine Casts None (NONE) Urine Mucus None (NONE) Urine Trichomonas None (NONE) Urine Yeast None (NONE) Ur Culture Indicated? Culture set - Patient's Progress MDM / ED Course: Urinalysis is consistent with UTI and culture is pending. She will be started on Cipro 500 mg twice a day for 5 days as well as Pyridium 200 mg 3 times a day for 2 days. She is advised push fluids and rest. She is advised to take ibuprofen 600 mg every 6 hours as needed for pain. In addition she was given # 10 [place] 7.5/325 which she can take one every 6 hours as needed for pain. She is advised return to the emergency room if increased pain, vomiting or dehydration, high fever, any worsening or change in symptoms. She will follow- up with primary care if no improvement in 3-[address] she has a follow -up appointment with her primary care provider on Wednesday this week. - Consult Counseled: POSITIVE: Patient Patient Care Time - Estimated PCT Patient Care Time (In Minutes): 15 Vital Signs - Recent Vital Signs Vital Signs: Vital Signs (Last 8 hours) Temp Pulse Resp Pulse Ox 01/09/17 13:48 96.2 F L 83 16 97 - VS Reviewed Vital Signs Reviewed: Yes Discharge Clinical Impression: Urinary tract infection Discharge Disposition: Discharged to Home Condition: Stable Prescriptions / Orders: Ciprofloxacin HCl [Cipro HCl] 500 mg PO Q12H #10 tab Hydrocodone/Acetaminophen [[place] 7.5-325 Tablet] 1 each PO Q6H PRN #10 tablet PRN Reason: Pain Phenazopyridine HCl [Pyridium] 200 mg PO TID PRN #6 tablet PRN Reason: Urinary Discomfort Patient Instructions Given at Discharge: Urinary Tract Infection in Women (ED) Additional Instructions: The urinalysis does show evidence of a urinary tract infection and a culture is pending. You will be notified of the culture results only if the bacteria is not sensitive to the antibiotic that you have been prescribed. You have been started on Cipro 500 mg 3 times a day for 5 days which is an antibiotic. In addition continue to push fluids. You've also been prescribed Pyridium 200 mg 3 times a day as needed for urinary symptoms. Continue ibuprofen 600 mg every 6 hours as needed for pain. You've also been prescribed [place] 7.5/325 which he can take one every 4-6 hours as needed for pain. Return to the emergency room if increased pain, vomiting or dehydration, high fever, any worsening or change in symptoms. Recommend follow-up with primary care if no improvement in 3-5 days. Follow Up With: ROSANA VENTURA [Primary Care Provider] -
== END 2017-01-09 14:20 | disposition home or self-care (01) ==
LOC: ER 13:40
DX: N39.0 Urinary tract infection, site not specified (principal); R10.31 Right lower quadrant pain; R11.2 Nausea with vomiting, unspecified; R30.0 Dysuria; Z72.0 Tobacco use
CPT/HCPCS: 81001; 81003; 87088; 99282

== ENCOUNTER → 2017-01-11 | Outpatient (CLI) | payer SELFPAY ==
--- NOTE | 2017-01-11 16:35 | DI ---
Tc-99 HIDA BILIARY SCAN WITH FATTY MEAL CHALLENGE, 01/11/2017 1:00 PM : Clinical History: Right upper quadrant abdominal pain. Previous Related Exam: CT scan of the abdomen and pelvis with IV contrast, 12/21/2016. Prior to performing the study, the patient was given a preparatory meal. The patient was injected wit h 6.5 mCi of Tc-99 Choletec, a HIDA compound. Anterior sequential imaging at one minute intervals wer e obtained out to 60 minutes. The patient was then given a 38 gm fatty challenge and sequential anter ior imaging at one minute intervals was carried out to 60 minutes for the gall bladder ejection phase . The patient did experience symptoms following the preparatory meal and the fatty meal challenge. Th e patient had nausea with the preparatory meal and had right upper quadrant pain with the fatty meal challenge. Gall bladder ejection fraction was calculated to be normal at 82%. Readin. Normal excretory Tc-99 HIDA biliary kinetics. 2. Normal gallbladder ejection fraction of 82%. 3. The patient did have right upper quadrant pain with the fatty meal challenge but the significance of this complaint is uncertain in view of the normal biliary kinetics and normal gallbladder ejectio n fraction.
== END ==
LOC: NM 12:59
PROVIDERS: ATTEND Family Medicine
DX: R10.11 Right upper quadrant pain (principal)
CPT/HCPCS: 78227; A9537

== ENCOUNTER → 2017-02-24 | Outpatient (CLI) | payer SELFPAY ==
--- NOTE | 2017-02-24 09:00 | DI ---
CT SINUS SCAN, 02/24/2017 8:01 AM : Clinical History: Acute sinusitis. Previous Exam: None at this facility. Scans are obtained from the base of the skull through the paranasal sinuses in the axial plane using very low dose with high resolution technique. Direct coronal reformatted images are generated perpend icular to the hard palate. The frontal, maxillary, ethmoid, and sphenoid sinuses are normal. The bony septum is midline. 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 The inferior turbinates are normal. The ostio meatal complex is intact. READING: Normal CT sinus scan. The ostiomeatal complex is intact.
== END ==
LOC: CT 07:52
DX: R59.1 Generalized enlarged lymph nodes (principal); J01.90 Acute sinusitis, unspecified
CPT/HCPCS: 70486